=== PATIENT | male | born 1980 | race Caucasian/White ===

== ENCOUNTER 2018-08-12 06:02 | Day surgery (SDC) | payer OTHER ==
[2018-08-12] VITALS (13 sets, daily range): BP systolic 91–118; BP diastolic 52–61; PULSE 46–60; RESP 13–18; Ht 170.2 cm; Wt 62.0 kg
[~2018-08-12] VITALS: Ht 170.2 cm; Wt 62.0 kg
[2018-08-12] MEDS ORDERED: TRAM50TA PO (06:52)
[2018-08-12] MEDS ORDERED: CEFAZOLIN 2 GM/50 ML (PMX) 50 ML IVPB ONE (07:00)
--- NOTE | 2018-08-12 07:22 | PREAC ---
Date/Time of Note Date/Time of Note DATE: 08/12/18 TIME: 07:20 Anesthesia Eval and Record Evaluation Time Pre-Procedure Interview DATE: 08/12/18 TIME: 07:20 Age 38 Sex male NPO: 8 hrs Preoperative diagnosis fracture of left ankle Planned procedure ORIF left ankle Past Medical History Past Medical History: None Surgery & Anesthesia Issues No known issue Meds Anticoagulation: No Beta Yogesh within 24 hr: No Reason Beta Yogesh not given: Pt. not on B-Yogesh Reported Medications Tramadol Hcl* (Ultram*) 50 Mg Tablet, 50 MG PO DAILY PRN for PAIN, TAB 08/12/18 Current Medications Cefazolin Sodium/ Dextrose 50 ml @ 100 mls/hr PRE-OP ONCE IVPB ; Start 08/12/18 at 07:00; Stop 08/12/18 at 07:29 Meds reviewed: Yes Allergies Coded Allergies: No Known Allergy (Unverified , 08/12/18) Allergies Reviewed: Yes Labs/Studies Labs Reviewed: Reviewed by anesthesiologist test: N/A Studies: ECG (n/a), CXR (nl) Pre-procedure Exam Last vitals Vital Signs Date Temp Pulse Resp B/P (MAP) Pulse Ox O2 O2 Flow FiO2 Time Delivery Rate 08/12/18 97.6 60 18 118/61 98 Room Air 07:10 (80) Airway: Adequate mouth opening Mallampati: Mallampati I Teeth: Normal Lung: Normal Heart: Normal ASA Physical Status ASA physical status: 1 Emergency: None Planned Anesthetic General/MAC: ETT, LMA Nerve block: Femoral (left), Sciatic (left) Planned Pain Management Single shot nerve block, Parenteral pain med Pre-operative Attestations Prior to commencing anesthesia and surgery, the patient was re-evaluated, there was verification of: *The patient's identity *The results of appropriate recent lab work and preoperative vital signs *The above evaluation not changing prior to induction *Anesthetic plan, risk benefits, alternative and complications discussed with patient/family; questions answered; patient/family understands, accepts and wishes to proceed. STANFORD TATE MD Aug 12, 2018 07:22
[2018-08-12] MEDS ORDERED: POLYMYXIN/BACITRACIN 1L IRRIG IRR ONE (07:25)
[2018-08-12] MEDS ORDERED: KETOROLAC 30 MG INJ IV PRN (07:30)
[2018-08-12] MEDS ORDERED: CEFAZOLIN 1 GM INJ ONE (07:30)
[2018-08-12] MEDS ORDERED: MEPERIDINE 25 MG INJ IV PRN (07:30)
[2018-08-12] MEDS ORDERED: HYDROmorphONE 1 MG/5 ML IV SYRINGE IV PRN (07:30)
[2018-08-12] MEDS ORDERED: ONDANSETRON 4 MG INJ IV PRN (07:30)
[2018-08-12] MEDS ORDERED: FENTAnyl 50 MCG/ML VIAL IV PRN ×3 (07:30)
[2018-08-12] MEDS ORDERED: OXYCODONE/ACETAMINOPHEN (5/325) TAB PO PRN ×2 (07:30)
[2018-08-12] MEDS ORDERED: DIPHENHYDRAMINE 50 MG INJ IV PRN (07:30)
[2018-08-12] MEDS ORDERED: MIDAZOLAM 1 MG/ML 2 ML INJ ONE (07:31)
[2018-08-12] MEDS ORDERED: PROPOFOL 20 ML ONE (07:31)
[2018-08-12] MEDS ORDERED: ONDANSETRON 4 MG INJ ONE (07:31)
[2018-08-12] MEDS ORDERED: KETOROLAC 30 MG INJ ONE (07:32)
[2018-08-12] MEDS ORDERED: ROPIVACAINE 0.5 % 30 ML VIAL ONE (07:32)
[2018-08-12] MEDS ORDERED: METOCLOPRAMIDE 10 MG INJ ONE (07:32)
--- NOTE | 2018-08-12 07:37 | HPN ---
Date/Time of Note Date/Time of Note DATE: 08/12/18 TIME: 07:37 Interval H&P Admission Note Pt. seen H&P reviewed: No system changes CESARIO MUÑIZ DPM Aug 12, 2018 07:37
[2018-08-12] MEDS ORDERED: FENTAnyl 50 MCG/ML VIAL ONE (07:51)
--- NOTE | 2018-08-12 09:35 | SIPON ---
Date/Time of Note Date/Time of Note DATE: 08/12/18 TIME: 09:35 Operative Report Preoperative Diagnosis Left ankle fracture with dislocation Ankle pain Postoperative Diagnosis Left ankle fracture with dislocation Ankle pain Operation/Procedure Performed Open reduction with internal fixation left ankle fracture Intraoperative use and interpretation of fluoroscopy Application of posterior splint left lower extremity Surgeon see signature line hospital clinic assistant None Anesthesia: general Estimated blood loss: 0 - 10 ml's Transfusion Required none Specimen None Grafts/Implants none Complications none CESARIO MUÑIZ DPM Aug 12, 2018 09:35
--- NOTE | 2018-08-12 09:38 | OPR ---
Date/Time of Note Date/Time of Note DATE: 08/12/18 TIME: 09:36 Operative Report Procedure Date: Aug 12, 2018 Preoperative Diagnosis Left ankle fracture with dislocation Ankle pain Postoperative Diagnosis Left ankle fracture with dislocation Ankle pain Operation/Procedure Performed Open reduction with internal fixation left ankle fracture Intraoperative use and interpretation of fluoroscopy Application of posterior splint left lower extremity Surgeon see signature line Rn Integrated None Anesthesia Type: general Estimated Blood Loss: 0 - 10 ml's Transfusion none Specimen None Grafts/Implants none Tubes/Drains None Complications none Pt Condition Post Procedure: stable Disposition: PACU Indications This is a pleasant 88-year-old male patient who has been suffering with left ankle fracture with dislocation involving the lateral malleolus and increase in lateral gutter space. Condition: Open reduction with internal fixation of left ankle fracture with dislocation. Risks and complications of this type of surgery was discussed with patient in great detail. Risks and complications discussed included, but are not limited to, postoperative infection, postoperative pain, hardware failure, malunion, nonunion, delayed union, failure of surgery to correct the problem, need for additional surgical procedures, deep venous thrombosis, limb loss and loss of life. Patient understands the discussion and agrees to the procedure. An informed consent was signed, obtained and placed in the chart. No guarantees or warrantees was given or implied as to the outcome of the procedure either in verbal or written form. Procedure Description The patient was seen in the preoperative unit. The proposed surgery was discussed with patient in great detail. Risks and complications of this type of surgery was discussed with patient in great detail. Opportunity was given to patient to ask questions and all questions were answered. The patient acknowledges understanding of the discussion. An informed consent was then obtained, signed and placed in the chart. Patient was taken to the operating room and was placed on the operating table in the supine position. All bony prominences were padded properly. A timeout was called by the circulating nurse. Everyone in the operating room was agreeable to the timeout. The patient was then placed under general anesthesia by the anesthesiologist. A pneumatic thigh tourniquet was applied to the right thigh. The right lower extremity was scrubbed,l prepped, and draped in the usual aseptic manner. An Esmarch bandage was utilized to exsanguinate the right lower extremity and the tourniquet was inflated to 200 mmHg pressure. Procedure #1: Open reduction with internal fixation of left ankle fracture with dislocation CESARIO MUÑIZ DPM Aug 12, 2018 09:38
[2018-08-12] MEDS ORDERED: LACTATED RINGER'S 1,000 ML IV SCH (10:00)
--- NOTE | 2018-08-12 11:25 | PAC ---
Date/Time of Note Date/Time of Note DATE: 08/12/18 TIME: 11:24 Post-Anesthesia Notes Post-Anesthesia Note Last documented vital signs Vital Signs Date Temp Pulse Resp B/P (MAP) Pulse Ox O2 O2 Flow FiO2 Time Delivery Rate 08/12/18 98.5 58 18 97/55 (69) 97 Room Air 10:30 08/12/18 98.5 10:09 08/12/18 8.0 09:45 Activity: WNL Respiratory function: WNL Cardiovascular function: WNL Mental status: Baseline Pain reasonably controlled: Yes Hydration appropriate: Yes Nausea/Vomiting absent: No STANFORD TATE MD Aug 12, 2018 11:25
== END 2018-08-12 11:40 | disposition home or self-care (01) ==
LOC: SDS 06:02
PROVIDERS: ATTEND Podiatrist Foot & Ankle Surgery
DX: S82.62XG Displaced fracture of lateral malleolus of left fibula, subsequent encounter for closed fracture with delayed healing (principal); X58.XXXD Exposure to other specified factors, subsequent encounter
CPT/HCPCS: 27792; 73610; C1713; J0690; J1885; J2250; J2405; J2765; J3010; Z7512; Z7610; J2795